=== PATIENT | female | born 1985 | race Caucasian/White ===

== ENCOUNTER → 2017-06-26 | Outpatient (REF) | payer OTHER ==
[~2017-06-26] MED LIST: DOCU10CA PO; IBUP-1022 PO; TYLE167L PO; VITAPRTA PO
== END ==
LOC: M SFHCLERA 12:01
PROVIDERS: ATTEND Family Medicine
DX: R94.6 Abnormal results of thyroid function studies (principal); Z53.9 Procedure and treatment not carried out, unspecified reason

== ENCOUNTER → 2017-10-22 | Outpatient (CLI) | payer OTHER ==
[2017-10-22 19:14] LABS: HEMATOCRIT 43.5 % (36.0-47.0); HEMOGLOBIN 14.4 g/dl (12.0-16.0); MEAN CORPUSCULAR HEMOGLOBIN 29.3 pg (27.0-33.0); MEAN CORPUSCULAR HGB CONC 33.1 g/dl (32.0-36.5); MEAN CORPUSCULAR VOLUME 88.4 fl (80.0-96.0); PLATELET COUNT, AUTOMATED 359 10^3/uL (150-450); RED BLOOD COUNT 4.92 10^6/uL (4.00-5.40); RED CELL DISTRIBUTION WIDTH 11.8 % (11.5-14.5); WHITE BLOOD COUNT 7.3 10^3/uL (4.0-10.0)
[2017-10-22 19:55] LABS: TOTAL 25(OH) VITAMIN D 33.8 NG/ML (30.0-100.0)
[2017-10-22 20:02] LABS: GLUCOSE, FASTING 96 MG/DL (70-105)
[2017-10-22 20:03] LABS: ALBUMIN 4.4 GM/DL (3.2-5.2); ALBUMIN/GLOBULIN RATIO 1.38 (1.00-1.93); ALKALINE PHOSPHATASE 81 U/L (45-117); ALT/SGPT 16 U/L (12-78); ANION GAP 9 MEQ/L (8-16); AST/SGOT 8 U/L (7-37); BILIRUBIN,TOTAL 0.4 MG/DL (0.2-1.0); BLOOD UREA NITROGEN 6 MG/DL (7-18); CARBON DIOXIDE LEVEL 28 MEQ/L (21-32); CHLORIDE LEVEL 103 MEQ/L (98-107); CHOLESTEROL LEVEL 167 MG/DL (<200); CHOLESTEROL RISK RATIO 2.783 (<5); CREATININE FOR GFR 0.62 MG/DL (0.55-1.02); GLOMERULAR FILTRATION RATE > 60.0 (>60); HDL CHOLESTEROL 60 MG/DL (>40); NON-HDL-C 107 MG/DL; SODIUM LEVEL 140 MEQ/L (136-145); THYROID STIMULATING HORMONE 0.821 uIU/ML (0.358-3.740); TOTAL PROTEIN 7.6 GM/DL (6.4-8.2); TRIGLYCERIDES LEVEL 45 MG/DL (<150)
[2017-10-22 20:44] LABS: ESTIMATED AVERAGE GLUCOSE 103 MG/DL (60-110); HEMOGLOBIN A1c 5.2 %
== END ==
LOC: M LAB 18:25
DX: D64.9 Anemia, unspecified (principal); R53.83 Other fatigue; M54.9 Dorsalgia, unspecified
CPT/HCPCS: 72110

== ENCOUNTER → 2017-11-23 | Outpatient (REF) | payer OTHER ==
[2017-11-23 20:38] LABS: INFLUENZA A AMPLIFICATION NEGATIVE (NEGATIVE); INFLUENZA B AMPLIFICATION NEGATIVE (NEGATIVE)
== END ==
LOC: M SFHCLERA 16:26
DX: J02.9 Acute pharyngitis, unspecified (principal)

== ENCOUNTER → 2018-01-29 | Outpatient (REF) | payer OTHER | LOC: M SFHCLERA 20:22 | DX: J02.9 Acute pharyngitis, unspecified (principal) ==

== ENCOUNTER → 2018-10-07 | Outpatient (REF) | payer OTHER | LOC: M SFHCLERA 16:38 | PROVIDERS: ATTEND Nurse Practitioner Family | DX: R30.0 Dysuria (principal) ==

== ENCOUNTER 2020-05-07 14:25 | Observation (INO) | payer OTHER ==
[2020-05-09] MEDS ORDERED: POTASSIUM CHLORIDE 10 MEQ SR TABLET As Ordered ONE (09:26)
[2020-05-09] MEDS ORDERED: POTASSIUM CHLORIDE 10 MEQ SR TABLET ONE (09:26)
[2020-05-09] MEDS ORDERED: diphenhydrAMINE CREAM 30GM ONE (13:00)
[2020-05-09] MEDS ORDERED: ACETAMINOPHEN 325 MG TAB ONE (17:34)
[2020-05-09] MEDS ORDERED: ACETAMINOPHEN 325 MG TAB As Ordered ONE (17:34)
[2020-06-04 17:14] LABS: ALBUMIN 4.1 GM/DL (3.2-5.2); ALT/SGPT 39 U/L (12-78); BILIRUBIN,DIRECT 0.3 MG/DL (0.0-0.2); BILIRUBIN,TOTAL 1.9 MG/DL (0.2-1.0); BLOOD UREA NITROGEN 26 MG/DL (7-18); CALCIUM LEVEL 9.1 MG/DL (8.5-10.1); CARBON DIOXIDE LEVEL 25 MEQ/L (21-32); CHLORIDE LEVEL 106 MEQ/L (98-107); CK-MB VALUE MASS 4.9 NG/ML (<3.6); CPK CREATINE PHOSPHOKINASE 371 U/L (26-192); CREATININE FOR GFR 0.76 MG/DL (0.55-1.30); FREE T4 1.55 NG/DL (0.76-1.46); GLOMERULAR FILTRATION RATE > 60.0 (>60); GLUCOSE, FASTING 93 MG/DL (70-100); MB/CK RELATIVE INDEX 1.32 (< OR =4); POTASSIUM SERUM 3.8 MEQ/L (3.5-5.1); SODIUM LEVEL 141 MEQ/L (136-145); TOTAL PROTEIN 7.5 GM/DL (6.4-8.2); TROPONIN I < 0.02 NG/ML (< 0.10)
[2020-06-11 11:28] LABS: BASO % 0.3 % (0.0-1.0); EOS # 0.1 10^3/uL (0.0-0.5); EOS % 1.9 % (0.0-3.0); HEMOGLOBIN 13.3 g/dl (12.0-15.5); LYMPH # 2.4 10^3/uL (1.5-5.0); LYMPH % 38.5 % (24.0-44.0); MEAN CORPUSCULAR HEMOGLOBIN 29.6 pg (27.0-33.0); MEAN CORPUSCULAR HGB CONC 33.3 g/dl (32.0-36.5); MEAN CORPUSCULAR VOLUME 89.1 fl (80.0-96.0); MONO # 0.7 10^3/uL (0.0-0.8); MONO % 10.7 % (0.0-5.0); NEUTROPHILS # 3.1 10^3/uL (1.5-8.5); NEUTROPHILS % 48.4 % (36.0-66.0); PLATELET COUNT, AUTOMATED 318 10^3/uL (150-450); RED BLOOD COUNT 4.49 10^6/uL (4.00-5.40); WHITE BLOOD COUNT 6.3 10^3/uL (4.0-10.0)
[2020-06-17 22:53] LABS: ALBUMIN 3.6 GM/DL (3.2-5.2); ALT/SGPT 29 U/L (12-78); BILIRUBIN,TOTAL 1.9 MG/DL (0.2-1.0); BLOOD UREA NITROGEN 23 MG/DL (7-18); CALCIUM LEVEL 8.6 MG/DL (8.5-10.1); CARBON DIOXIDE LEVEL 25 MEQ/L (21-32); CHLORIDE LEVEL 108 MEQ/L (98-107); CHOLESTEROL LEVEL 183 MG/DL (<200); CHOLESTEROL RISK RATIO 2.472 (<5); CK-MB VALUE MASS 2.8 NG/ML (<3.6); CPK CREATINE PHOSPHOKINASE 218 U/L (26-192); CREATININE FOR GFR 0.63 MG/DL (0.55-1.30); GLOMERULAR FILTRATION RATE > 60.0 (>60); GLUCOSE, FASTING 89 MG/DL (70-100); HDL CHOLESTEROL 74 MG/DL (>40); LDL CHOLESTEROL 97 MG/DL (<100); MAGNESIUM LEVEL 2.1 MG/DL (1.8-2.4); MB/CK RELATIVE INDEX 1.28 (< OR =4); NON-HDL-C 109 MG/DL; POTASSIUM SERUM 3.3 MEQ/L (3.5-5.1); SODIUM LEVEL 141 MEQ/L (136-145); TOTAL PROTEIN 6.6 GM/DL (6.4-8.2); TRIGLYCERIDES LEVEL 59 MG/DL (<150); TROPONIN I < 0.02 NG/ML (< 0.10)
[2020-06-17 22:55] LABS: FREE THYROXINE INDEX 3.6 % (1.3-4.8); T UPTAKE 36 % (30-39); THYROXINE (T4) 9.9 UG/DL (4.5-12.0)
[2020-06-17 22:56] LABS: THYROID STIMULATING HORMONE 0.432 uIU/ML (0.358-3.740)
[2020-06-19 23:09] LABS: HEMATOCRIT 37.9 % (36.0-47.0); HEMOGLOBIN 12.5 g/dl (12.0-15.5); MEAN CORPUSCULAR HEMOGLOBIN 29.6 pg (27.0-33.0); MEAN CORPUSCULAR VOLUME 89.6 fl (80.0-96.0); PLATELET COUNT, AUTOMATED 311 10^3/uL (150-450); RED BLOOD COUNT 4.23 10^6/uL (4.00-5.40); WHITE BLOOD COUNT 5.5 10^3/uL (4.0-10.0)
[2020-06-19 23:16] LABS: ERYTHROCYTE SEDIMENTATION RATE 7 mm/hr (0-20)
[2020-06-29 23:02] LABS: HEMATOCRIT 36.8 % (36.0-47.0); HEMOGLOBIN 12.3 g/dl (12.0-15.5); MEAN CORPUSCULAR HEMOGLOBIN 30.4 pg (27.0-33.0); MEAN CORPUSCULAR HGB CONC 33.4 g/dl (32.0-36.5); MEAN CORPUSCULAR VOLUME 91.1 fl (80.0-96.0); PLATELET COUNT, AUTOMATED 294 10^3/uL (150-450); RED BLOOD COUNT 4.04 10^6/uL (4.00-5.40); WHITE BLOOD COUNT 5.2 10^3/uL (4.0-10.0)
--- NOTE | 2020-06-30 15:12 | ECGEPIP ---
SINUS RHYTHM WITH SINUS ARRHYTHMIA NONSPECIFIC ST & T-WAVE ABNORMALITY BORDERLINE ECG DELAYED RWP NO PRIOR DUE TO DOWNTIME SEE SCANNED DOWNTIME REPORT MTDD
--- NOTE | 2020-07-03 09:20 | REP ---
CT OF THE BRAIN WITHOUT CONTRAST: HISTORY: Syncope. FINDINGS: Preliminary digital scout sniper radiograph is unremarkable. Bone window settings demonstrate an intact bony calvarium. The visualized paranasal sinuses are clear. On soft tissue window settings, the lateral, third and fourth ventricles are normal in size and position. Mccoy-white differentiation pattern is normal above and below the tentorium. There is no evidence of intracranial hemorrhage. No mass, infarct, extra-axial fluid collection or midline shift is seen. IMPRESSION: Negative noncontrast head MTDD
[2020-07-16 21:23] LABS: BLOOD UREA NITROGEN 14 MG/DL (7-18); CALCIUM LEVEL 8.5 MG/DL (8.5-10.1); CARBON DIOXIDE LEVEL 26 MEQ/L (21-32); CHLORIDE LEVEL 108 MEQ/L (98-107); CREATININE FOR GFR 0.63 MG/DL (0.55-1.30); GLOMERULAR FILTRATION RATE > 60.0 (>60); GLUCOSE, FASTING 90 MG/DL (70-100); MAGNESIUM LEVEL 1.9 MG/DL (1.8-2.4); POTASSIUM SERUM 3.6 MEQ/L (3.5-5.1); SODIUM LEVEL 141 MEQ/L (136-145)
--- NOTE | 2020-07-18 10:48 | EEG ---
DATE: 05/09/2020 DIAGNOSIS: Syncope. EEG# [id number] HISTORY: Patient is a 25-year-old woman who was admitted at [facility] after a passing out spell. She passed out at work. This EEG was done to rule out epileptic potential. She is currently taking Tylenol, Ambien, etc. DESCRIPTION: This baseline EEG was recorded by a 21- scalp and two EKG electrodes and was reviewed in bipolar and referential montages following reformatting in 10-20 electrode placement system. INTERPRETATION: Patient was noted to be in awake and drowsy state during this EEG. Resting and awake background rhythm consisted of alpha posterior dominant rhythm with anterior-posterior gradient comprising of 11 Hz alpha activity measuring 15-40 microvolts in amplitude which was symmetric and reactive to eye opening. Attenuation of posterior dominant rhythm was seen during transition to drowsiness. Stage 1 and 2 sleep were reviewed and were symmetric bilaterally. Hyperventilation and photic stimulation remained unremarkable. EKG revealed normal sinus rhythm. No focal, lateralizing, or epileptiform abnormalities were seen. No relevant clinical activity was noted. CONCLUSION: This EEG in awake, drowsy states, stage 1 and 2 sleep is within normal limits. [facility]
--- NOTE | 2020-07-21 14:39 | ECHO ---
DATE OF PROCEDURE: 05/09/2020 Age: 35 years Height: 64 inches Weight: 160 pounds, body surface area 1.77 sq m. Inpatient PCU room 3229 REFERRING PHYSICIAN: Charissa Gloria MD INDICATION: Syncope MEASUREMENTS: 2D Measurements: RV - 3.0 cm LV - 4.9 cm Septum 0.9 cm Posterior wall 0.9 cm Aortic root 2.8 cm LA - 3.2 cm LVEF 75% Doppler Measurements: AV - 1.26 m/s LVOT - 0.9 m/s LVOT diameter 2.0 cm MV-E 87, A 41, E/A ratio 2.1 Early mitral deceleration time 217 m/s E prime medial 10.6, A prime medial 6, E prime lateral 13.2 PV -0.8 m/s Pulmonary artery acceleration time 135 m/s RVSP 22 mmHg IVC 1.5 cm COMMENTS: Normal sinus rhythm without intraventricular conduction disturbance. M-Mode and two dimensional echocardiography was performed with pulse, continuous wave, color flow, and tissue Doppler studies. Normal left ventricular size, wall thickness, and wall motion. Normal left atrial size and Doppler assessment of left ventricular (LV) diastolic function and estimated mean left atrial pressure. Normal right heart chambers sizes, wall motion, and estimated pulmonary arterial pressure. Normal inferior vena cava (IVC) size and collapse against an elevated central venous pressure. Normal aortic dimensions. Normal appearing and functioning valvular structures. No apparent intracardiac mass or pericardial effusion. No apparent structural or functional echo abnormality detected to explain the patients syncopal spell. MTDD
[2020-07-23 14:39] LABS: ANTINUCLEAR ANTIBODIES DIRECT See Separate Report; Lyme Disease IgG/IgM Antibodie See Separate Report
== END 2020-05-10 16:22 | disposition home or self-care (01) ==
LOC: M ED 14:25 → M PCU 05-08 18:16
PROVIDERS: ADMIT General Practice; ATTEND General Practice
DX: R55 Syncope and collapse (principal); R20.0 Anesthesia of skin; R94.31 Abnormal electrocardiogram [ECG] [EKG]; R21 Rash and other nonspecific skin eruption; M54.9 Dorsalgia, unspecified; F41.9 Anxiety disorder, unspecified; Z82.0 Family history of epilepsy and other diseases of the nervous system; Z83.79 Family history of other diseases of the digestive system; Z82.61 Family history of arthritis

== ENCOUNTER → 2020-05-13 | Outpatient (REF) | payer OTHER ==
[2020-06-29 16:30] LABS: HEMATOCRIT 40.3 % (36.0-47.0); HEMOGLOBIN 13.2 g/dl (12.0-15.5); MEAN CORPUSCULAR HEMOGLOBIN 29.9 pg (27.0-33.0); MEAN CORPUSCULAR HGB CONC 32.8 g/dl (32.0-36.5); MEAN CORPUSCULAR VOLUME 91.2 fl (80.0-96.0); PLATELET COUNT, AUTOMATED 312 10^3/uL (150-450); RED BLOOD COUNT 4.42 10^6/uL (4.00-5.40)
[2020-06-30 11:14] LABS: ALT/SGPT 22 IU/L (0-32); BILIRUBIN,TOTAL 1.4 MG/DL (0.2-1.0); BLOOD UREA NITROGEN 11 MG/DL (7-18); CALCIUM LEVEL 8.5 MG/DL (8.5-10.1); CARBON DIOXIDE LEVEL 28 mmol/L (20-29); CHLORIDE LEVEL 105 MEQ/L (98-107); CHOLESTEROL LEVEL 179 MG/DL (<200); CHOLESTEROL RISK RATIO 2.712 (<5); CREATININE FOR GFR 0.66 MG/DL (0.55-1.30); GLOMERULAR FILTRATION RATE > 60.0 (>60); GLUCOSE, FASTING 79 MG/DL (70-100); HDL CHOLESTEROL 66 MG/DL (>40); LDL CHOLESTEROL 102.4 MG/DL (<100); NON-HDL-C 113 MG/DL; SODIUM LEVEL 140 MEQ/L (136-145); TRIGLYCERIDES LEVEL 53 MG/DL (<150)
[2020-06-30 11:16] LABS: TOTAL PROTEIN 7.1 GM/DL (6.4-8.2)
[2020-06-30 11:17] LABS: HEMOGLOBIN A1c 5.1 %; THYROID STIMULATING HORMONE 0.325 uIU/ML (0.358-3.740); TOTAL 25(OH) VITAMIN D 26.8 NG/ML (30.0-100.0)
== END ==
LOC: M LAB REF 05-12 15:20
PROVIDERS: ATTEND Family Medicine
DX: R53.83 Other fatigue (principal); E03.9 Hypothyroidism, unspecified; E86.0 Dehydration

== ENCOUNTER → 2020-10-23 | Outpatient (CLI) | payer OTHER ==
--- NOTE | 2020-10-23 12:42 | REP ---
INDICATION: DJD SCIATICA COMPARISON: None. TECHNIQUE: AP, lateral, bilateral oblique, and coned-down views of the lumbar spine. FINDINGS: Early advanced degenerative changes at the L5-S1 level includes endplate sclerosis, disc space narrowing, facet arthropathy and early marginal spurring. Alignment and lordosis maintained. Remainder of the examination is normal. There is no evidence for acute fracture/compression injury or subluxation. No obvious spondylolysis or spondylolisthesis. IMPRESSION: Focal advanced degenerative spondylosis at L5-S1. <Electronically signed by Doyle Cabrera > 10/23/20 [id number]
== END ==
LOC: M WUC 11:52
PROVIDERS: ATTEND Family Medicine
DX: M51.9 Unspecified thoracic, thoracolumbar and lumbosacral intervertebral disc disorder (principal); M54.30 Sciatica, unspecified side; M47.817 Spondylosis without myelopathy or radiculopathy, lumbosacral region

== ENCOUNTER 2021-01-14 14:10 | Emergency (ER) | payer OTHER ==
[~2021-01-14] VITALS: Ht 162.6 cm; Wt 76.2 kg
[2021-01-14] MEDS ORDERED: NS 1,000 ML IV ONE (14:45)
[2021-01-14 15:42] LABS: BASO % 0.5 % (0.0-1.0); EOS # 0.2 10^3/uL (0.0-0.5); HEMATOCRIT 41.2 % (36.0-47.0); HEMOGLOBIN 13.4 g/dl (12.0-15.5); LYMPH # 2.6 10^3/uL (1.5-5.0); LYMPH % 30.6 % (24.0-44.0); MEAN CORPUSCULAR HGB CONC 32.5 g/dl (32.0-36.5); MEAN CORPUSCULAR VOLUME 92.2 fl (80.0-96.0); MONO # 0.4 10^3/uL (0.0-0.8); MONO % 4.8 % (2.0-8.0); NEUTROPHILS # 5.2 10^3/uL (1.5-8.5); NEUTROPHILS % 61.9 % (36.0-66.0); PLATELET COUNT, AUTOMATED 368 10^3/uL (150-450); RED BLOOD COUNT 4.47 10^6/uL (4.00-5.40); WHITE BLOOD COUNT 8.4 10^3/uL (4.0-10.0)
[2021-01-14 16:14] LABS: HCG, SERUM QUALITATIVE NEGATIVE (NEGATIVE)
[2021-01-14 16:17] LABS: ALBUMIN 4.1 GM/DL (3.2-5.2); ALT/SGPT 14 U/L (12-78); BILIRUBIN,DIRECT 0.2 MG/DL (0.0-0.2); BILIRUBIN,TOTAL 0.5 MG/DL (0.2-1.0); BLOOD UREA NITROGEN 10 MG/DL (7-18); CALCIUM LEVEL 9.3 MG/DL (8.5-10.1); CARBON DIOXIDE LEVEL 27 MEQ/L (21-32); CHLORIDE LEVEL 103 MEQ/L (98-107); CREATININE FOR GFR 0.86 MG/DL (0.55-1.30); GLOMERULAR FILTRATION RATE > 60.0 (>60); GLUCOSE, FASTING 100 MG/DL (70-100); POTASSIUM SERUM 3.9 MEQ/L (3.5-5.1); SODIUM LEVEL 137 MEQ/L (136-145); TOTAL PROTEIN 7.6 GM/DL (6.4-8.2)
[2021-01-14] MEDS ORDERED: MORPHINE 2 MG/ML 1ML VIAL (J2270) IV PRN (16:35)
[2021-01-14 16:57] LABS: RSV AMPLIFICATION NEGATIVE (NEGATIVE)
--- NOTE | 2021-01-14 17:53 | REPVR ---
PROCEDURE INFORMATION: Exam: CT Abdomen And Pelvis Without Contrast Exam date and time: 01/14/2021 5:31 PM Age: 35 years old Clinical indication: Abdominal pain; Flank; Right; Additional info: Back pain RO stone TECHNIQUE: Imaging protocol: Computed tomography of the abdomen and pelvis without contrast. Radiation optimization: All CT scans at this facility use at least one of these dose optimization techniques: automated exposure control; mA and/or kV adjustment per patient size (includes targeted exams where dose is matched to clinical indication); or iterative reconstruction. COMPARISON: US OBS FOLL UP OR REPEAT EACH GES 09/12/2014 1:16 PM FINDINGS: Liver: Normal. No mass. Gallbladder and bile ducts: Normal. No calcified stones. No ductal dilation. Pancreas: Normal. No ductal dilation. Spleen: Normal. No splenomegaly. Adrenal glands: Normal. No mass. Kidneys and ureters: Left renal posterior lower pole 1.1 mm calyceal calculus; additional smaller left caliceal calculi suspected. Right renal lower pole 1.7 mm calyceal calculus. No specific evidence of acute obstructive uropathy. Stomach and bowel: Unremarkable. No obstruction. No mucosal thickening. Appendix: No evidence of appendicitis. Intraperitoneal space: Unremarkable. No free air. No significant fluid collection. Vasculature: Left pelvic phleboliths. Lymph nodes: No enlarged lymph nodes. Urinary bladder: Unremarkable as visualized. Reproductive: The uterus contains a Mirena IUD. Bones/joints: L5-S1 degenerative disc disease. Soft tissues: A tiny paraumbilical hernia containing only abdominal fat is noted. IMPRESSION: 1. Bilateral renal calyceal lithiasis. 2. No specific evidence of acute obstructive uropathy. 3. Intrauterine device. Electronically signed by: Hunter Garcia On 01/14/2021 17:53:49 PM
[2021-01-14] MEDS ORDERED: BACTRIM 160MG/800MG DS TAB PO ONE (18:15)
[2021-01-14] MEDS ORDERED: BACT800T5 PO (18:15)
[2021-01-14] MEDS ORDERED: SKEL800T97 PO (18:16)
[2021-01-14] MEDS ORDERED: HYDR-3713 PO (18:17)
[2021-01-14 18:38] VITALS: BP 115/53
--- NOTE | 2021-01-14 19:30 | ECGEPIP ---
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
== END 2021-01-14 18:42 | disposition home or self-care (01) ==
LOC: M ED 14:10
DX: N39.0 Urinary tract infection, site not specified (principal); M54.9 Dorsalgia, unspecified; R94.31 Abnormal electrocardiogram [ECG] [EKG]
CPT/HCPCS: 74176; 80048; 80076; 81001; 84703; 85025; 87088; 87186; 87631; 93005; 96361; 96374; 99284; J2270

== ENCOUNTER → 2021-03-04 | Outpatient (CLI) | payer OTHER ==
[~2021-03-04] MED LIST changes: +BACT800T5 PO; +HYDR-3713 PO; +SKEL800T97 PO
--- NOTE | 2021-03-04 16:03 | REP ---
INDICATION: RADICULOPATHY. Low back and left leg pain. COMPARISON: Comparison radiographs are from October 23, 2020.. TECHNIQUE: Sagittal and axial T1 and T2-weighted scans are acquired in the usual fashion with and without fat saturation. Sequences include spin echo, turbo spin-echo, and STIR imaging sequences. FINDINGS: Lumbar vertebral body heights are preserved. Alignment is normal. Cortical and medullary bone signal intensity is normal except at L5-S1 where there is degenerative disc associated marrow edema. The tip of the conus medullaris is normal in position and appearance at L1. No extra vertebral abnormality is appreciated. Axial and sagittal images taken at L1-2, L2-3, and L3-4 are normal. At L4-5, there is diffuse disc bulging. Bilateral foraminal disc bulging is observed but nerve roots exit the neural foramina without visible compression. There is minimal disc space narrowing. No spinal stenosis. Facets are unremarkable. At L5-S1, there is degenerative disc narrowing. Osteoarthritic facet hypertrophy is present bilaterally at L5-S1. There is diffuse disc bulging and posterior osteophytic ridging. There is mild left and moderate right-sided neural foraminal narrowing due to facet hypertrophy and disc bulging. No spinal stenosis is seen. Study is otherwise unremarkable. IMPRESSION: Degenerative disc disease at L4-5 and L5-S1 with minimal disc bulging at L L4-5 and diffuse disc bulging at L5-S1. Bilateral neural foraminal narrowing is present at L5-S1, right more so than left. There is osteoarthritic facet hypertrophy at L5-S1 bilaterally. <Electronically signed by Ken Lyons > 03/04/21 [id number]
== END ==
LOC: M RAD 14:55
PROVIDERS: ATTEND Orthopaedic Surgery
DX: M54.16 Radiculopathy, lumbar region (principal); M51.36 Other intervertebral disc degeneration, lumbar region; M51.37 Other intervertebral disc degeneration, lumbosacral region

== ENCOUNTER 2021-08-22 08:19 | Outpatient (CLI) | payer OTHER ==
[~2021-08-22] VITALS: Ht 162.6 cm; Wt 72.6 kg
[~2021-08-22 08:19] MED LIST changes: +ALBUTEROL 90 MCG/ACT 8GM HFA INHALER INH PRN; +ALBUTEROL SULFATE 2.5 MG/0.5 ML INH NEB SOLN INH PRN; +EPINEPHrine INJ 1 MG/ML 1ML AMP IM PRN; +NS 1,000 ML IV SCH; +diphenhydrAMINE 50MG/ML VIAL (J1200) IV PRN; +methylPREDNISolone 125MG 2ML VIAL IV PRN
[2021-08-22 08:55] VITALS: BP 114/65
[2021-08-22] MEDS ORDERED: CASIRIVIMAB (REGN10933) 600 MG, IMDEVIMAB (REGN10987) 600 MG in NS 250 ML IV ONE (09:00)
[2021-08-22 09:25] VITALS: BP 116/59
[2021-08-22 09:55] VITALS: BP 116/64
[2021-08-22 10:55] VITALS: BP 119/64
== END 2021-08-22 10:55 | disposition home or self-care (01) ==
LOC: M OPCLI4PR 08:19
PROVIDERS: ATTEND Family Medicine
DX: U07.1 COVID-19 (principal)

== ENCOUNTER → 2022-04-15 | Outpatient (REF) | payer OTHER ==
[~2022-04-15] MED LIST changes: -ALBUTEROL 90 MCG/ACT 8GM HFA INHALER INH PRN; -ALBUTEROL SULFATE 2.5 MG/0.5 ML INH NEB SOLN INH PRN; -EPINEPHrine INJ 1 MG/ML 1ML AMP IM PRN; -NS 1,000 ML IV SCH; -diphenhydrAMINE 50MG/ML VIAL (J1200) IV PRN; -methylPREDNISolone 125MG 2ML VIAL IV PRN
== END ==
LOC: M LAB REF 11:46
PROVIDERS: ATTEND Physician Assistant
DX: J02.9 Acute pharyngitis, unspecified (principal)

== ENCOUNTER → 2022-09-30 | Outpatient (CLI) | payer OTHER | LOC: M SOG 07:57 | PROVIDERS: ATTEND Orthopaedic Surgery | DX: M54.50 Low back pain, unspecified (principal); Z53.8 Procedure and treatment not carried out for other reasons ==

== ENCOUNTER → 2022-10-22 | Outpatient (CLI) | payer OTHER | LOC: M SOG 08:07 | PROVIDERS: ATTEND Orthopaedic Surgery | DX: Z53.9 Procedure and treatment not carried out, unspecified reason (principal) ==

== ENCOUNTER 2023-02-10 12:41 | Emergency (ER) | payer OTHER ==
[~2023-02-10] VITALS: Ht 162.6 cm; Wt 76.0 kg
[2023-02-10] MEDS ORDERED: GABA-1171 (12:48)
[2023-02-10] MEDS ORDERED: VALA500T5 (12:48)
[2023-02-10] MEDS ORDERED: AMPH1TAB2 (12:48)
[2023-02-10] MEDS ORDERED: ERGO500029 (12:48)
[2023-02-10] MEDS ORDERED: diphenhydrAMINE 50MG/ML VIAL IV STA (14:16)
[2023-02-10] MEDS ORDERED: NS 1,000 ML IV ONE (14:20)
[2023-02-10] MEDS ORDERED: KETOROLAC 30 MG/ML 1ML VIAL IV ONE (14:20)
[2023-02-10] MEDS ORDERED: METOCLOPRAMIDE INJ 10MG/2ML VIAL IV ONE (14:20)
[2023-02-10 14:52] LABS: BASO % 0.4 % (0.0-1.0); EOS # 0.7 10^3/uL (0.0-0.5); EOS % 9.9 % (0.0-3.0); HEMATOCRIT 38.4 % (36.0-47.0); HEMOGLOBIN 12.2 g/dl (12.0-15.5); LYMPH # 2.2 10^3/uL (1.5-5.0); LYMPH % 30.7 % (24.0-44.0); MEAN CORPUSCULAR HEMOGLOBIN 29.7 pg (27.0-33.0); MEAN CORPUSCULAR HGB CONC 31.8 g/dl (32.0-36.5); MEAN CORPUSCULAR VOLUME 93.4 fl (80.0-96.0); MONO # 0.4 10^3/uL (0.0-0.8); MONO % 5.5 % (2.0-8.0); NEUTROPHILS # 3.8 10^3/uL (1.5-8.5); NEUTROPHILS % 53.2 % (36.0-66.0); PLATELET COUNT, AUTOMATED 310 10^3/uL (150-450); RED BLOOD COUNT 4.11 10^6/uL (4.00-5.40); WHITE BLOOD COUNT 7.1 10^3/uL (4.0-10.0)
[2023-02-10] MEDS ORDERED: ISOVUE-370 76% 100ML VIAL As Ordered ONE (14:54)
[2023-02-10 15:15] LABS: LIPASE 25 U/L (12-53)
[2023-02-10 15:17] LABS: ALBUMIN 3.3 G/DL (3.2-5.2); ALKALINE PHOSPHATASE 110 U/L (46-116); ALT/SGPT < 9 U/L (7.0-40); AST/SGOT < 8 U/L (<34); BILIRUBIN,DIRECT 0.1 MG/DL (<0.4); BILIRUBIN,TOTAL 0.3 MG/DL (0.3-1.2); TOTAL PROTEIN 6.1 G/DL (5.7-8.2)
[2023-02-10 15:23] LABS: RSV AMPLIFICATION NEGATIVE (NEGATIVE)
[2023-02-10] MEDS ORDERED: PRED20TA PO (15:48)
[2023-02-10] MEDS ORDERED: AMOX875T2 PO (15:48)
[2023-02-10 16:08] VITALS: BP 117/56
== END 2023-02-10 16:20 | disposition home or self-care (01) ==
LOC: M ED 12:41
DX: N39.0 Urinary tract infection, site not specified (principal); J32.3 Chronic sphenoidal sinusitis; N83.201 Unspecified ovarian cyst, right side; G43.909 Migraine, unspecified, not intractable, without status migrainosus; D64.9 Anemia, unspecified; Z86.73 Personal history of transient ischemic attack (TIA), and cerebral infarction without residual deficits; Z79.899 Other long term (current) drug therapy
CPT/HCPCS: 70450; 74177; 80047; 80076; 81001; 83690; 84702; 85025; 87088; 87186; 87631; 96374; 96375; 99284; J1200; J1885; J2765; Q9967

== ENCOUNTER 2023-06-03 11:49 | Inpatient (IN) | payer OTHER ==
[~2023-06-03] VITALS: Ht 162.6 cm; Wt 82.0 kg
[~2023-06-03 11:49] MED LIST changes: +AMOX875T2 PO; +AMPH1TAB2; +ERGO500029; +GABA-1171; +PRED20TA PO; +VALA500T5
[2023-06-03 13:18] LABS: BASO % 0.2 % (0.0-1.0); EOS # 0.1 10^3/uL (0.0-0.5); EOS % 0.3 % (0.0-3.0); HEMOGLOBIN 11.9 g/dl (12.0-15.5); LYMPH # 0.9 10^3/uL (1.5-5.0); MEAN CORPUSCULAR HEMOGLOBIN 29.5 pg (27.0-33.0); MEAN CORPUSCULAR HGB CONC 32.2 g/dl (32.0-36.5); MEAN CORPUSCULAR VOLUME 91.8 fl (80.0-96.0); MONO # 0.7 10^3/uL (0.0-0.8); MONO % 3.8 % (2.0-8.0); NEUTROPHILS # 16.6 10^3/uL (1.5-8.5); NEUTROPHILS % 90.3 % (36.0-66.0); PLATELET COUNT, AUTOMATED 315 10^3/uL (150-450); RED BLOOD COUNT 4.03 10^6/uL (4.00-5.40); WHITE BLOOD COUNT 18.5 10^3/uL (4.0-10.0)
[2023-06-03 13:37] LABS: LIPASE 35 U/L (12-53)
[2023-06-03 13:39] LABS: ALBUMIN 3.4 G/DL (3.2-5.2); ALKALINE PHOSPHATASE 71 U/L (46-116); ALT/SGPT < 9 U/L (7.0-40); AST/SGOT < 8 U/L (<34); BILIRUBIN,DIRECT 0.1 MG/DL (<0.4); BILIRUBIN,TOTAL 0.4 MG/DL (0.3-1.2)
[2023-06-03] MEDS ORDERED: ISOVUE-370 76% 100ML VIAL As Ordered ONE (14:15)
[2023-06-03] MEDS ORDERED: MAALOX 30 ML SUSP *UDC PO ONE (15:00)
[2023-06-03] MEDS ORDERED: KETOROLAC 30 MG/ML 1ML VIAL IV ONE (15:00)
[2023-06-03] MEDS ORDERED: ONDANSETRON 4MG 2ML VIAL IV ONE (15:00)
[2023-06-03 15:02] LABS: CK-MB VALUE MASS < 1.0 NG/ML (<3.6)
[2023-06-03 15:03] LABS: CPK CREATINE PHOSPHOKINASE 82 U/L (34-145); MB/CK RELATIVE INDEX 1.21 (< OR =4)
[2023-06-03] MEDS ORDERED: MORPHINE 4 MG/ML 1ML VIAL IV ONE (15:35)
[2023-06-03] MEDS ORDERED: PANTOPRAZOLE 40MG VIAL IV ONE (17:00)
[2023-06-03] MEDS ORDERED: SUCRALFATE 1 GM TAB PO ONE (17:00)
[2023-06-03] MEDS ORDERED: ACETAMINOPHEN TAB 650MG DOSE (2X325MG) PO PRN (18:10)
[2023-06-03] MEDS ORDERED: POTASSIUM CHLORIDE 10MEQ SR TABLET PO ONE (18:10)
[2023-06-03] MEDS ORDERED: fentaNYL 100 MCG/2 ML INJECTION IV ONE (18:15)
[2023-06-03 18:35] LABS: RSV AMPLIFICATION NEGATIVE (NEGATIVE)
[2023-06-03] MEDS ORDERED: MED REC IN PROGRESS XX SCH (18:45)
[2023-06-03] MEDS: NS 1,000 ML IV SCH (18:50)
[2023-06-03] MEDS ORDERED: diazePAM 10MG/2ML SYRINGE IV ONE (19:10)
[2023-06-03] MEDS ORDERED: HOME MED LIST COMPLETE! XX SCH (19:25)
[2023-06-03 19:40] LABS: PROCALCITONIN 0.26 ng/ml
[2023-06-03] MEDS ORDERED: LevoFLOXacin IV 750 MG in IV 1 EA IV SCH (20:00)
[2023-06-03] MEDS: SUCRALFATE 1 GM TAB PO SCH (21:00)
[2023-06-03 21:41] LABS: C REACTIVE PROTEIN QUANTITATIV 3.4 MG/DL (<1.0)
[2023-06-03] MEDS: metroNIDAZOLE 500 MG in IV 1 EA IV SCH (23:39)
[2023-06-04 02:54] VITALS: BP 112/52; TEMP 98; O2SAT 99
[2023-06-04] MEDS: NS 1,000 ML IV SCH ×2 (03:31→11:39)
[2023-06-04] MEDS ORDERED: PANTOPRAZOLE 40MG VIAL IV SCH (06:00)
[2023-06-04] MEDS: metroNIDAZOLE 500 MG in IV 1 EA IV SCH ×2 (06:04→14:38)
[2023-06-04 06:52] LABS: BASO % 0.3 % (0.0-1.0); EOS # 0.7 10^3/uL (0.0-0.5); EOS % 5.5 % (0.0-3.0); HEMATOCRIT 32.8 % (36.0-47.0); HEMOGLOBIN 10.6 g/dl (12.0-15.5); LYMPH # 2.5 10^3/uL (1.5-5.0); LYMPH % 20.9 % (24.0-44.0); MEAN CORPUSCULAR HGB CONC 32.3 g/dl (32.0-36.5); MEAN CORPUSCULAR VOLUME 92.9 fl (80.0-96.0); MONO # 0.6 10^3/uL (0.0-0.8); MONO % 5.3 % (2.0-8.0); NEUTROPHILS # 8.1 10^3/uL (1.5-8.5); NEUTROPHILS % 67.7 % (36.0-66.0); PLATELET COUNT, AUTOMATED 270 10^3/uL (150-450); RED BLOOD COUNT 3.53 10^6/uL (4.00-5.40)
[2023-06-04 07:22] LABS: ALBUMIN 2.7 G/DL (3.2-5.2); ALKALINE PHOSPHATASE 62 U/L (46-116); ALT/SGPT < 9 U/L (7.0-40); AST/SGOT < 8 U/L (<34); BILIRUBIN,TOTAL 0.2 MG/DL (0.3-1.2); BLOOD UREA NITROGEN 11 MG/DL (9-23); CARBON DIOXIDE LEVEL 25 MMOL/L (20-31); CHLORIDE LEVEL 111 MMOL/L (98-107); CREATININE FOR GFR 0.52 MG/DL (0.55-1.30); GLOMERULAR FILTRATION RATE > 60.0 (>58); GLUCOSE, FASTING 94 MG/DL (60-100); MAGNESIUM LEVEL 1.8 MG/DL (1.8-2.4); POTASSIUM SERUM 4.2 MMOL/L (3.5-5.1); SODIUM LEVEL 141 MMOL/L (136-145)
[2023-06-04] MEDS: SUCRALFATE 1 GM TAB PO SCH ×2 (07:30→12:35)
[2023-06-04 08:00] VITALS: BP 112/54; TEMP 98.1; O2SAT 96
[2023-06-04] MEDS ORDERED: LIDOCAINE 5% (LIDODERM) PATCH TD SCH (09:00)
[2023-06-04] MEDS ORDERED: ENOXAPARIN 40MG/0.4ML SYRINGE (J1650 PER 10MG) SC SCH (09:00)
[2023-06-04] MEDS: oxyCODONE 5MG TAB PO PRN ×2 (12:31→12:36)
[2023-06-04] MEDS ORDERED: ISOVUE-370 76% 100ML VIAL As Ordered ONE (13:07)
[2023-06-04] MEDS ORDERED: CARA1TAB6 PO (13:38)
[2023-06-04] MEDS ORDERED: OXYC1TAB23 PO (13:38)
[2023-06-04] MEDS ORDERED: PROTPAK PO (13:38)
[2023-06-04] MEDS ORDERED: LEVO1TAB40 PO (13:38)
[2023-06-04] MEDS ORDERED: MM S100C PO (13:40)
[2023-06-04] MEDS ORDERED: MIRA3350 PO (13:40)
== END 2023-06-04 15:50 | disposition home or self-care (01) ==
LOC: M ED 11:49 → M ED INP 06-04 00:21 → M PED 06-04 02:30
PROVIDERS: ADMIT Internal Medicine; ATTEND Internal Medicine
DX: K80.20 Calculus of gallbladder without cholecystitis without obstruction (principal); J18.9 Pneumonia, unspecified organism; E87.6 Hypokalemia; K29.70 Gastritis, unspecified, without bleeding; G89.29 Other chronic pain; M47.817 Spondylosis without myelopathy or radiculopathy, lumbosacral region; M54.9 Dorsalgia, unspecified; Z79.899 Other long term (current) drug therapy

== ENCOUNTER 2023-10-01 09:56 | Emergency (ER) | payer MEDICAID, OTHER ==
[~2023-10-01] VITALS: Ht 162.6 cm; Wt 80.6 kg
[~2023-10-01 09:56] MED LIST changes: +CARA1TAB6 PO; +LEVO1TAB40 PO; +MIRA3350 PO; +MM S100C PO; +OXYC1TAB23 PO; +PROTPAK PO
[2023-10-01] MEDS ORDERED: KETOROLAC 30 MG/ML 1ML VIAL IV ONE (12:00)
[2023-10-01] MEDS ORDERED: ONDANSETRON 4MG 2ML VIAL IV ONE (12:00)
[2023-10-01] MEDS ORDERED: NS 1,000 ML IV ONE (12:00)
[2023-10-01 12:06] LABS: BASO % 0.6 % (0.0-1.0); EOS # 0.5 10^3/uL (0.0-0.5); EOS % 7.5 % (0.0-3.0); HEMATOCRIT 38.5 % (36.0-47.0); HEMOGLOBIN 12.9 g/dl (12.0-15.5); LYMPH # 2.2 10^3/uL (1.5-5.0); LYMPH % 34.7 % (24.0-44.0); MEAN CORPUSCULAR HEMOGLOBIN 29.7 pg (27.0-33.0); MEAN CORPUSCULAR HGB CONC 33.5 g/dl (32.0-36.5); MEAN CORPUSCULAR VOLUME 88.7 fl (80.0-96.0); MONO # 0.3 10^3/uL (0.0-0.8); MONO % 5.4 % (2.0-8.0); NEUTROPHILS # 3.3 10^3/uL (1.5-8.5); NEUTROPHILS % 51.6 % (36.0-66.0); PLATELET COUNT, AUTOMATED 314 10^3/uL (150-450); RED BLOOD COUNT 4.34 10^6/uL (4.00-5.40); WHITE BLOOD COUNT 6.3 10^3/uL (4.0-10.0)
[2023-10-01 12:31] LABS: PROTHROMBIN TIME 12.9 SECONDS (12.5-14.5)
[2023-10-01 12:32] LABS: PARTIAL THROMBOPLASTIN TIME 28.9 SECONDS (24.8-34.2)
[2023-10-01 12:35] LABS: CK-MB VALUE MASS < 1.0 NG/ML (<3.6); LIPASE 25 U/L (12-53)
[2023-10-01 12:37] LABS: ALBUMIN 4.1 G/DL (3.2-5.2); ALKALINE PHOSPHATASE 57 U/L (46-116); ALT/SGPT 11 U/L (7.0-40); AST/SGOT 14 U/L (<34); BILIRUBIN,DIRECT 0.2 MG/DL (<0.4); BILIRUBIN,TOTAL 0.5 MG/DL (0.3-1.2); HCG, SERUM QUALITATIVE NEGATIVE (NEGATIVE); TOTAL PROTEIN 6.7 G/DL (5.7-8.2)
[2023-10-01 12:38] LABS: CPK CREATINE PHOSPHOKINASE 90 U/L (34-145); MB/CK RELATIVE INDEX 1.11 (< OR =4)
[2023-10-01 13:03] LABS: RSV AMPLIFICATION NEGATIVE (NEGATIVE)
[2023-10-01] MEDS ORDERED: ONDA4TAB6 PO (14:31)
[2023-10-01 14:32] VITALS: BP 130/62; TEMP 97.4; O2SAT 99
== END 2023-10-01 14:42 | disposition home or self-care (01) ==
LOC: M ED 09:56
DX: K80.50 Calculus of bile duct without cholangitis or cholecystitis without obstruction (principal); F41.9 Anxiety disorder, unspecified; Z83.79 Family history of other diseases of the digestive system; Z82.49 Family history of ischemic heart disease and other diseases of the circulatory system
CPT/HCPCS: 76705; 80047; 80076; 81001; 82550; 82553; 83690; 84703; 85025; 85610; 85730; 87086; 87631; 96361; 96374; 96375; 99284; J1885; J2405